=== PATIENT | female | born 1935 | race Caucasian/White ===

== ENCOUNTER 2018-10-01 12:39 | Emergency (ER) | payer OTHER ==
[~2018-10-01] VITALS: Ht 162.6 cm; Wt 59.8 kg
[2018-10-01 13:15] LABS: ABSOLUTE BASOPHILS 0.1 thou/uL (0.0-0.2); ABSOLUTE LYMPHOCYTES 1.8 thou/uL (0.8-5.3); ABSOLUTE MONOCYTES 0.7 thou/uL (0.0-1.2); ABSOLUTE NEUTROPHILS 8.1 thou/uL (1.6-8.1); BASOPHILS 1.2 %; EOSINOPHILS 0.4 %; HEMATOCRIT 40.2 % (37.0-47.0); HEMOGLOBIN 13.4 gm/dL (12.0-15.0); LYMPHOCYTES 16.5 %; MCH 29.2 pg (26.0-34.0); MCHC 33.4 g/dL (28.0-37.0); MCV 87.3 fL (80.0-100.0); MONOCYTES 6.9 %; MPV 7.5 fl. (7.2-11.1); NUCLEATED RBCS 0 /100WBC; PLATELET COUNT* 437 thou/uL (150-400); RBC 4.61 mil/uL (4.20-5.00); RDW-CV 15.6 % (10.5-14.5); WBC 10.8 thou/uL (4.0-11.0)
[2018-10-01 13:25] LABS: ANION GAP 9 mmol/L (7-16); BUN 16 mg/dL (7-18); CALCIUM 9.1 mg/dL (8.5-10.1); CHLORIDE 104 mmol/L (98-107); CO2 30 mmol/L (21-32); CREATININE 0.8 mg/dL (0.6-1.3); GLUCOSE 95 mg/dL (70-99); POTASSIUM 4.1 mmol/L (3.5-5.1); SODIUM 143 mmol/L (136-145)
[2018-10-01 13:26] LABS: APTT 27.5 Seconds (25.0-31.3); PROTIME 10.2 Seconds (9.20-11.50)
[2018-10-01 13:49] LABS: ALBUMIN 3.7 g/dL (3.4-5.0); ALKALINE PHOSPHATASE 70 U/L (46-116); CK-MB MASS 0.5 ng/mL (<0.5-3.6); NT-PRO BRAIN NAT PEPTIDE 311 pg/mL (<300); SGOT 16 U/L (15-37); SGPT 17 U/L (30-65); TOTAL BILIRUBIN 0.4 mg/dL (<0.1-1.0); TOTAL PROTEIN 7.4 g/dL (6.4-8.2); TROPONIN-I LEVEL <0.06 ng/mL (<0.06)
[2018-10-01 15:24] LABS: URINE BILIRUBIN NEGATIVE (Negative); URINE BLOOD NEGATIVE (Negative); URINE CLARITY CLEAR; URINE COLOR YELLOW; URINE GLUCOSE-RANDOM NEGATIVE (Negative); URINE KETONES TRACE (Negative); URINE LEUKOCYTES-REFLEX NEGATIVE (Negative); URINE NITRITE-REFLEX NEGATIVE (Negative); URINE PROTEIN NEGATIVE (Negative); URINE SPECIFIC GRAVITY <= 1.005 (1.005-1.030); URINE UROBILINOGEN 0.2 E.U./dl (0.2-1.0)
[2018-10-01 16:13] VITALS: BP 168/86
--- NOTE | 2018-10-01 17:41 | EKG ---
[place] [address] ELECTROCARDIOGRAM REPORT Name: DENNY PERDOMO Room: [facility]#: [id number] Admission: 10/01/18 Attend Phys: Discharge: 10/01/18 Date of : 31 Report #: [id number] THIS REPORT FOR: //name// [facility] ED Test Date: 2018-10-01 Test Time: 12:46:34 Pat Name: DENNY PERDOMO Department: Room: Gender: F Chairman President And Chief Executive Officer: Carmen WOLFE : 1935 Requested By: Jayjay Damon Order Number: [id number] MD: Phil Esqueda Measurements Intervals [place] Rate: 69 P: 7 [place]: 194 QRS: -45 QRSD: 94 T: 59 QT: 432 QTc: 463 Interpretive Statements Sinus rhythm Inferior infarct, old Compared to ECG 03/27/2008 02:31:07 Myocardial infarct finding now present Left-axis deviation no longer present Electronically Signed On 10-01-2018 17:41:46 CDT by Phil Esqueda [email or web address] <ELECTRONICALLY SIGNED> By: Phil Esqueda MD, [facility] 10/01/18 1741 1246 1246 Phil Esqueda MD, [facility] /EPI
== END 2018-10-01 16:10 | disposition short-term general hospital (02) ==
LOC: M.ERS 12:39
PROVIDERS: Family Medicine
DX: I61.9 Nontraumatic intracerebral hemorrhage, unspecified (principal); I10 Essential (primary) hypertension; R53.1 Weakness; R41.0 Disorientation, unspecified; Z90.710 Acquired absence of both cervix and uterus; Z86.73 Personal history of transient ischemic attack (TIA), and cerebral infarction without residual deficits; Z88.0 Allergy status to penicillin; Z88.2 Allergy status to sulfonamides; Z91.041 Radiographic dye allergy status

== ENCOUNTER 2018-10-13 12:07 | Inpatient (IN) | payer OTHER ==
[~2018-10-13] VITALS: Ht 157.5 cm; Wt 56.2 kg
[2018-10-13] MEDS ORDERED: LISINOPRIL10 MG PO (12:12)
[2018-10-13] MEDS ORDERED: FOSAMAX 70 MG T70 MG PO (12:13)
[2018-10-13 15:46] VITALS: BP 131/79
[2018-10-13 19:53] VITALS: BP 120/69
[2018-10-13 23:25] LABS: URINE BILIRUBIN NEGATIVE (Negative); URINE BLOOD TRACE (Negative); URINE CLARITY CLEAR; URINE COLOR YELLOW; URINE GLUCOSE-RANDOM NEGATIVE (Negative); URINE KETONES NEGATIVE (Negative); URINE NITRITE-REFLEX NEGATIVE (Negative); URINE PROTEIN NEGATIVE (Negative); URINE UROBILINOGEN 0.2 E.U./dl (0.2-1.0)
[2018-10-13 23:33] LABS: URINE LEUKOCYTES-REFLEX 3+ (Negative)
[2018-10-13 23:50] LABS: CASTS None Seen /LPF (None Seen); SQUAMOUS >10 Many /LPF (0-3)
[2018-10-13 23:51] LABS: MUCUS 0-3 Light strn/LPF (None Seen); URINE WBC-REFLEX >25 Many /HPF (0-5)
[2018-10-13 23:52] LABS: URINE RBC 3-10 Few /HPF (0-2)
[2018-10-13 23:53] LABS: BACTERIA-REFLEX 1-9 Few /HPF (None Seen); CRYSTALS None Seen /LPF (None Seen); YEAST-REFLEX Present (None Seen)
[2018-10-14 05:02] LABS: ABSOLUTE BASOPHILS 0.1 thou/uL (0.0-0.2); ABSOLUTE EOSINOPHILS 0.4 thou/uL (0.0-0.7); ABSOLUTE LYMPHOCYTES 2.2 thou/uL (0.8-5.3); ABSOLUTE MONOCYTES 1.1 thou/uL (0.0-1.2); ABSOLUTE NEUTROPHILS 8.2 thou/uL (1.6-8.1); BASOPHILS 0.8 %; EOSINOPHILS 3.3 %; HEMATOCRIT 38.4 % (37.0-47.0); HEMOGLOBIN 12.5 gm/dL (12.0-15.0); LYMPHOCYTES 18.3 %; MCH 28.7 pg (26.0-34.0); MCHC 32.5 g/dL (28.0-37.0); MCV 88.4 fL (80.0-100.0); MONOCYTES 9.2 %; MPV 7.8 fl. (7.2-11.1); NUCLEATED RBCS 0 /100WBC; PLATELET COUNT* 478 thou/uL (150-400); POLYS 68.4 %; RBC 4.35 mil/uL (4.20-5.00); RDW-CV 15.7 % (10.5-14.5)
[2018-10-14 05:29] LABS: CALCIUM 9.1 mg/dL (8.5-10.1); CREATININE 0.9 mg/dL (0.6-1.3); POTASSIUM 4.5 mmol/L (3.5-5.1)
[2018-10-14 07:30] VITALS: BP 127/82
[2018-10-14 19:50] VITALS: BP 115/62
[2018-10-15 08:50] VITALS: BP 101/59
[2018-10-15 19:20] VITALS: BP 108/61
[2018-10-16 08:13] VITALS: BP 131/74
[2018-10-16 19:50] VITALS: BP 116/60
[2018-10-17 07:28] VITALS: BP 129/78
[2018-10-17 20:00] VITALS: BP 116/66
[2018-10-18 07:45] VITALS: BP 134/71
[2018-10-18 20:00] VITALS: BP 112/64
[2018-10-19 08:10] VITALS: BP 110/69
[2018-10-19 20:10] VITALS: BP 133/63
[2018-10-20 05:21] LABS: ABSOLUTE BASOPHILS 0.1 thou/uL (0.0-0.2); ABSOLUTE EOSINOPHILS 0.3 thou/uL (0.0-0.7); ABSOLUTE LYMPHOCYTES 2.6 thou/uL (0.8-5.3); ABSOLUTE MONOCYTES 0.9 thou/uL (0.0-1.2); ABSOLUTE NEUTROPHILS 5.5 thou/uL (1.6-8.1); EOSINOPHILS 3.4 %; HEMATOCRIT 35.8 % (37.0-47.0); LYMPHOCYTES 27.8 %; MCH 29.5 pg (26.0-34.0); MCHC 33.5 g/dL (28.0-37.0); MCV 88.1 fL (80.0-100.0); MONOCYTES 9.8 %; MPV 7.8 fl. (7.2-11.1); NUCLEATED RBCS 0 /100WBC; PLATELET COUNT* 360 thou/uL (150-400); RBC 4.06 mil/uL (4.20-5.00); RDW-CV 15.4 % (10.5-14.5); WBC 9.5 thou/uL (4.0-11.0)
[2018-10-20 05:31] LABS: CALCIUM 9.1 mg/dL (8.5-10.1); MAGNESIUM 2.2 mg/dL (1.8-2.4); POTASSIUM 4.6 mmol/L (3.5-5.1)
[2018-10-20 07:26] VITALS: BP 134/71
[2018-10-20 19:00] VITALS: BP 107/67
[2018-10-21 08:02] VITALS: BP 131/74
[2018-10-21 20:03] VITALS: BP 102/58
[2018-10-22 08:00] VITALS: BP 122/64
[2018-10-22 19:20] VITALS: BP 103/54
[2018-10-23 08:00] VITALS: BP 130/65
[2018-10-23 15:19] LABS: ABSOLUTE BASOPHILS 0.1 thou/uL (0.0-0.2); ABSOLUTE EOSINOPHILS 0.3 thou/uL (0.0-0.7); ABSOLUTE LYMPHOCYTES 2.2 thou/uL (0.8-5.3); ABSOLUTE MONOCYTES 0.7 thou/uL (0.0-1.2); ABSOLUTE NEUTROPHILS 4.8 thou/uL (1.6-8.1); EOSINOPHILS 4.2 %; HEMATOCRIT 37.2 % (37.0-47.0); HEMOGLOBIN 12.3 gm/dL (12.0-15.0); LYMPHOCYTES 26.7 %; MCHC 33.1 g/dL (28.0-37.0); MCV 87.6 fL (80.0-100.0); MONOCYTES 8.7 %; MPV 7.5 fl. (7.2-11.1); NUCLEATED RBCS 0 /100WBC; PLATELET COUNT* 392 thou/uL (150-400); POLYS 59.4 %; RBC 4.25 mil/uL (4.20-5.00); RDW-CV 15.2 % (10.5-14.5); WBC 8.1 thou/uL (4.0-11.0)
[2018-10-23 15:38] LABS: CALCIUM 8.9 mg/dL (8.5-10.1); CREATININE 0.8 mg/dL (0.6-1.3); POTASSIUM 4.9 mmol/L (3.5-5.1)
[2018-10-23 18:06] LABS: URINE BILIRUBIN NEGATIVE (Negative); URINE BLOOD NEGATIVE (Negative); URINE CLARITY CLEAR; URINE COLOR YELLOW; URINE GLUCOSE-RANDOM NEGATIVE (Negative); URINE KETONES NEGATIVE (Negative); URINE LEUKOCYTES 1+ (Negative); URINE NITRITE NEGATIVE (Negative); URINE PROTEIN NEGATIVE (Negative); URINE SPECIFIC GRAVITY 1.015 (1.005-1.030); URINE UROBILINOGEN 0.2 E.U./dl (0.2-1.0)
[2018-10-23 18:17] LABS: BACTERIA 1-9 Few /HPF (None Seen); CASTS None Seen /LPF (None Seen); SQUAMOUS 0-3 Few /LPF (0-3); URINE RBC None Seen /HPF (0-2); URINE WBC 0-5 Rare /HPF (0-5)
[2018-10-23 18:55] LABS: CRYSTALS None Seen /LPF (None Seen)
[2018-10-23 21:14] VITALS: BP 105/60
[2018-10-24 08:00] VITALS: BP 122/85
[2018-10-24 19:35] VITALS: BP 111/66
[2018-10-25 07:20] VITALS: BP 139/87
[2018-10-25 19:35] VITALS: BP 103/60
[2018-10-26 08:26] VITALS: BP 119/82
[2018-10-26 20:12] VITALS: BP 116/69
[2018-10-27 04:29] LABS: HEMATOCRIT 34.6 % (37.0-47.0); HEMOGLOBIN 11.3 gm/dL (12.0-15.0); MCHC 32.7 g/dL (28.0-37.0); MCV 88.7 fL (80.0-100.0); MPV 7.8 fl. (7.2-11.1); RBC 3.9 mil/uL (4.20-5.00); RDW-CV 15.3 % (10.5-14.5); WBC 9.9 thou/uL (4.0-11.0)
[2018-10-27 04:38] LABS: CALCIUM 9.1 mg/dL (8.5-10.1); POTASSIUM 4.4 mmol/L (3.5-5.1)
[2018-10-27 08:30] VITALS: BP 126/68
[2018-10-27 19:18] VITALS: BP 111/62
[2018-10-28 08:00] VITALS: BP 112/65
[2018-10-28 08:35] VITALS: BP 112/65
[2018-10-28 13:04] VITALS: BP 112/65
[2018-10-28] MEDS ORDERED: VITAMIN D1000 UNI1 PO (13:32)
[2018-10-28] MEDS ORDERED: UNICOMPLEX M TA1 TA1 PO (13:33)
[2018-10-28 14:09] VITALS: BP 112/65
== END 2018-10-28 15:20 | disposition home health service (06) | DRG 56 ==
LOC: M.REH 12:07
PROVIDERS: Family Medicine; Internal Medicine; ADMIT Physical Medicine & Rehabilitation
DX: I69.351 Hemiplegia and hemiparesis following cerebral infarction affecting right dominant side (principal); I63.9 Cerebral infarction, unspecified; I61.9 Nontraumatic intracerebral hemorrhage, unspecified; E44.0 Moderate protein-calorie malnutrition; R47.01 Aphasia; R53.81 Other malaise; I10 Essential (primary) hypertension; M81.0 Age-related osteoporosis without current pathological fracture; R29.6 Repeated falls; R13.0 Aphagia; F32.9 Major depressive disorder, single episode, unspecified; Z88.0 Allergy status to penicillin; Z88.2 Allergy status to sulfonamides; Z91.041 Radiographic dye allergy status; Z86.73 Personal history of transient ischemic attack (TIA), and cerebral infarction without residual deficits; Z68.22 Body mass index [BMI] 22.0-22.9, adult